=== PATIENT | male | born 1960 | race Caucasian/White ===

== ENCOUNTER 2017-01-11 14:38 | Emergency (ER) | payer OTHER ==
[~2017-01-11] VITALS: Ht 175.3 cm; Wt 100.5 kg
[~2017-01-11 14:38] MED LIST: HYDR2.5T PO; IBUP-238 PO; METH750T2 PO; ROSU5 PO
[2017-01-11 14:43] VITALS: BP 133/85; PULSE 77; RESP 16; TEMP 98.5; O2SAT 97
--- NOTE | 2017-01-11 15:07 | PD ---
HPI Chief Complaint: Laceration/Skin Injury Time Seen by Provider: 15:05 Travel History International Travel<30 days: No Contact w/Intl Traveler<30days: No Traveled to known affect area: No History of Present Illness HPI Patient comes in complaining of a right index finger laceration that occurred shortly prior to arrival. Patient states that he accidentally dropped a empty wooden pallet on his finger got caught between his finger and the steel plate. Patient states he rinsed it with water and applied a paper towel prior to coming to the emergency department. Patient is uncertain of his last tetanus shot. FOR[facility]LY [facility] Past Medical History High Cholesterol: Yes Diminished Hearing: No Musculoskeletal: Yes (TRAMAUTIC MULTIPLE FX RT LEG) Tetanus Vaccination: > 5 Years Past Surgical History Appendectomy: Yes Tonsillectomy: Yes Social History Alcohol Use: Yes (OCC) Tobacco Use: Yes (1/2 PPD) Substance Use: No Allergies-Medications (Allergen,Severity, Reaction): Coded Allergies: No Known Allergies (Verified , 01/11/17) Reported Meds & Prescriptions Reported Meds & Active Scripts Active Robaxin (Methocarbamol) 750 Mg Tab 750 Mg PO QIDPRN Lortab 2.5/500 (Acetaminophen/Hydrocodone Bitart) Tab 1-2 Tab PO Q4-6HPRN FOR PAIN Motrin (Ibuprofen) 800 Mg Tab 800 Mg PO TIDPRN FOR PAIN Reported Crestor (Rosuvastatin Calcium) 5 Mg Tab 0 PO DAILY Review of Systems Except as stated in HPI: all other systems reviewed are Neg Physical Exam Narrative GENERAL: Well-developed, well nourished, in no acute distress, and non-ill appearing. SKIN: Warm and dry. Laceration over the palmar surface second digit right upper extremity distal phalanx. Neurovascularly intact distally. Full range of motion of affected finger. HEAD: Atraumatic. Normocephalic. EYES: Pupils equal and round. EOMI. No scleral icterus. No injection or drainage. ENT: No nasal bleeding or discharge. Mucous membranes pink and moist. NECK: Trachea midline. Supple. No nuclear rigidity. CARDIOVASCULAR: Capillary refill less than 2 seconds. RESPIRATORY: No accessory muscle use. No respiratory distress. MUSCULOSKELETAL: No obvious deformities. No clubbing. No cyanosis. No edema. Full range of motion. NEUROLOGICAL: Awake and alert. No obvious cranial nerve deficits. Motor grossly within normal limits. Normal speech. PSYCHIATRIC: Appropriate mood and affect; insight and judgment normal. Data Data Last Documented VS Vital Signs Date Time Temp Pulse Resp B/P Pulse Ox O2 Delivery O2 Flow Rate FiO2 01/11/17 14:43 98.5 77 16 133/85 97 Orders Bupivacaine Pf 0.5% Inj (Marcaine Pf 0.5 (01/11/17 15:15) Lidocaine 1% Inj (50 Ml) (Xylocaine 1% I (01/11/17 15:15) Tetanus/Diphtheria Tox Adult (Tetanus/Di (01/11/17 15:15) Finger ([id number]) (01/11/17 ) MDM Medical Decision Making Medical Screen Exam Complete: Yes Emergency Medical Condition: Yes Differential Diagnosis Laceration, fracture, open fracture, abrasion, or other Narrative Course The patient suffered laceration to the finger. There was no evidence to suggest foreign bodies. Visual, tactile and radiographic exams were unremarkable without evidence of foreign body at this time. There was no evidence of neurovascular injury. The patient had a normal distal vascular exam, and had full normal motor and sensory exams. There was also no evidence or tendon injury , with normal distal full range of motions, flexion, extension, abduction, adduction and opponens. There was no evidence of local joint space involvement at this time. The patient was irrigated with copious sterile normal saline and primary repair was performed. Please see procedure note. The patient was given signs and symptom warnings for infection, such as increasing pain, redness, swelling, associated heat, pus or fever. The patient was warned of possible unseen foreign body and instructed to return immediately if signs or symptoms develop. The patient was given instructions for timely follow up. The patient agreed with plan of care. Patient in no obvious distress upon re-evaluation. All pertinent Radiology result(s) discussed with patient. Any questions/concerns in reference to patient diagnosis/condition discussed and clarified prior to patient's discharge. Reinforced sheer importance of close follow up with patient's primary physician or primary care clinic. Instructed patient to return to ED immediately, if symptoms return/worsen. Pt showed understanding of above instructions. Further instructions and recommendations were detailed in discharge paperwork. Pt ambulated without difficulty out of ED at discharge. Procedures Procedure Narrative LACERATION REPAIR LOCATION: Miguel surface right index finger distal phalanx LENGTH: Approximately 3 cm total length L-shaped NUMBER OF STITCHES/KATHLEEN: 6 simple interrupted REPAIR: Verbal consent was obtained. The area of the laceration was cleaned and prepped. Digital block was performed using a mixture of lidocaine without epi and Marcaine without epi. The wound was copiously irrigated and explored without evidence of foreign body, bony involvement, ligament injury, tendon injury, or neurovascular injury. The wound was closed using 5-0 Vicryl. This was a single layer repair. A sterile dressing was applied by nurse. The patient was advised to keep the affected area as clean and dry as possible using soap and water. There were no complications. Patient tolerated the procedure well. Diagnosis Primary Impression: Finger laceration Qualified Code: S61.219A - Finger laceration, initial encounter Patient Instructions: Care For Your Absorbable Stitches (ED), Finger Laceration (ED), General Instructions Additional Instructions: Follow-up with your primary care physician and/or Workmen's Comp. provider next week for reevaluation. Keep wound dry and clean as possible using soap and water. Return to the emergency department if symptoms get worse. Disposition: 01 DISCHARGE HOME Condition: Stable Mikie Ramires Jan 11, 2017 15:07
[2017-01-11] MEDS ORDERED: LIDOCAINE HCL 1% 50 ML VIAL INFIL ONE (15:15)
[2017-01-11] MEDS ORDERED: TETANUS/DIPHTHERIA TOXOID ADULT 0.5 ML VIAL IM ONE (15:15)
[2017-01-11] MEDS ORDERED: BUPIVACAINE HCL PF 0.5% 10 ML VIAL INFIL ONE (15:15)
--- NOTE | 2017-01-11 15:43 | RADHPO ---
EXAM DATE/TIME: 01/11/2017 15:12 [place] COMPARISON: No previous studies available for comparison. INDICATIONS : Laceration to second digit. Complains of pain. MEDICAL HISTORY : None. SURGICAL HISTORY : None. ENCOUNTER: Initial ACUITY: 1 day PAIN SCORE: 2/10 LOCATION: Right hand, second digit FINDINGS: Examination of the second digit of the right hand demonstrates no evidence of fracture or dislocation . No radiopaque foreign bodies are seen. The soft tissues are intact. CONCLUSION: Unremarkable examination of the right second finger. Juvenal Mullen Jr., MD on January 11, 2017 at 15:41 Board Certified Radiologist. This report was verified electronically.
== END 2017-01-11 16:02 | disposition home or self-care (01) ==
LOC: PHEFT 14:38
DX: S61.210A Laceration without foreign body of right index finger without damage to nail, initial encounter (principal); E78.00 Pure hypercholesterolemia, unspecified; F17.210 Nicotine dependence, cigarettes, uncomplicated; Z23 Encounter for immunization; W20.8XXA Other cause of strike by thrown, projected or falling object, initial encounter; Y93.9 Activity, unspecified; Y92.9 Unspecified place or not applicable; Y99.9 Unspecified external cause status
CPT/HCPCS: 12002; 73140; 90471; 90714